=== PATIENT | female | born 1985 | race Caucasian/White ===

== ENCOUNTER 2019-07-22 15:24 | Emergency (ER) | payer BC ==
[~2019-07-22] VITALS: Ht 157.5 cm; Wt 94.8 kg
[2019-07-22 15:37] VITALS: Ht 157.5 cm; Wt 94.8 kg
[2019-07-22 17:10] VITALS: BP 143/87
== END 2019-07-22 18:04 | disposition home or self-care (01) ==
LOC: ED 15:24
DX: L02.211 Cutaneous abscess of abdominal wall (principal)
CPT/HCPCS: J2001; J2270; Q0162

== ENCOUNTER 2019-07-24 16:51 | Emergency (ER) | payer BC ==
[~2019-07-24] VITALS: Ht 157.5 cm; Wt 93.9 kg
[2019-07-24 17:30] VITALS: BP 114/74; Ht 157.5 cm; Wt 93.9 kg
== END 2019-07-24 19:23 | disposition left against medical advice (07) ==
LOC: ED 16:51
DX: Z53.21 Procedure and treatment not carried out due to patient leaving prior to being seen by health care provider (principal)

== ENCOUNTER 2019-07-25 04:34 | Emergency (ER) | payer BC ==
[~2019-07-25] VITALS: Ht 157.5 cm; Wt 94.3 kg
[2019-07-25 04:52] VITALS: Ht 157.5 cm; Wt 94.3 kg
[2019-07-25 05:52] VITALS: BP 133/82
== END 2019-07-25 05:52 | disposition home or self-care (01) ==
LOC: ED 04:34
DX: Z48.01 Encounter for change or removal of surgical wound dressing (principal)